=== PATIENT | female | born 1980 | race Caucasian/White ===

== ENCOUNTER 2019-06-15 17:04 | Emergency (ER) | payer OTHER ==
[~2019-06-15] VITALS: Ht 165.1 cm; Wt 113.4 kg
--- NOTE | 2019-06-15 17:13 | NUR ---
Patient to ER bed 8 to gown for evaluation. Side rails up. Report given to Mandi PARRA.
[2019-06-15 17:35] VITALS: BP_SYST 161
--- NOTE | 2019-06-15 17:58 | NUR ---
pt arrives after being exposed from gastric from gastric contents from a g-tube. Pt pt was splashed in her eyes. No other c/o at the moment
--- NOTE | 2019-06-15 18:00 | NUR ---
TARIQ Zimmerman at bedside examining patient.
--- NOTE | 2019-06-15 18:20 | NUR ---
pt lavaged her eyes for 10 min
--- NOTE | 2019-06-15 18:40 | NUR ---
pt getting labs drawn at the bedside
--- NOTE | 2019-06-15 19:05 | NUR ---
Patient given written and verbal discharge instructions and verbalizes understanding. ER MD discussed with patient the results and treatment provided. Patient in stable condition. ID arm band removed. Patient educated on pain management and to follow up with PMD. Pain Scale 0/10. Opportunity for questions provided and answered. Medication side effect fact sheet provided.
[2019-06-15 19:28] VITALS: BP_SYST 161
== END 2019-06-15 19:05 | disposition home or self-care (01) ==
LOC: SED 17:04
DX: Z77.21 Contact with and (suspected) exposure to potentially hazardous body fluids (principal)
CPT/HCPCS: 36415; 86704; 86706; 86803; 87340; 99281

== ENCOUNTER 2019-06-18 07:31 | Emergency (ER) | payer OTHER ==
[~2019-06-18] VITALS: Ht 165.1 cm; Wt 111.1 kg
--- NOTE | 2019-06-18 07:42 | NUR ---
Patient to ER bed 8 to gown for evaluation. Side rails up.
[2019-06-18 07:48] VITALS: BP_SYST 224
--- NOTE | 2019-06-18 07:50 | NUR ---
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 PT seen in [facility] ER Tuesday. Patient staes today she has right eye discharge and redness.
--- NOTE | 2019-06-18 07:55 | NUR ---
ER Dr. Sánchez at bedside examining patient.
[2019-06-18] MEDS ORDERED: PROPARACAINE (OPTHANINE 0.5%) 15 ML DROPS OP ONE (08:00)
[2019-06-18] MEDS ORDERED: FLUORESCEIN SODIUM 1 MG OPHTHALMIC STRIP OP ONE (08:00)
--- NOTE | 2019-06-18 08:50 | NUR ---
BP re-check 184/114, made Dr. Sánchez aware.
[2019-06-18] MEDS ORDERED: cloNIDine HCL 0.1 MG TABLET PO ONE (09:00)
[2019-06-18 09:17] LABS: BASOPHILS % (AUTO) 0.5 % (0.0-2.0); EOSINOPHILS # (AUTO) 0.2 K/uL (0.0-0.4); EOSINOPHILS % (AUTO) 4.4 % (0.0-4.0); HEMATOCRIT 38.3 % (36-48); HEMOGLOBIN 12.7 g/dL (12.0-16.0); LYMPHOCYTES # (AUTO) 1.7 K/uL (1.0-5.5); LYMPHOCYTES % (AUTO) 31.1 % (20.5-51.5); MEAN CORPUSCULAR HEMOGLOBIN 29 pg (27-31); MEAN CORPUSCULAR HGB CONC 33 % (32-36); MEAN CORPUSCULAR VOLUME 86 fL (79.0-98.0); MONOCYTES # (AUTO) 0.4 K/uL (0.0-1.0); MONOCYTES % (AUTO) 6.8 % (1.7-9.3); NEUTROPHILS # (AUTO) 3.2 K/uL (1.8-7.7); NEUTROPHILS % (AUTO) 57.2 % (40.0-70.0); PLATELET COUNT (AUTO) 318 K/uL (130-430); RED BLOOD CELL COUNT(AUTO) 4.47 MIL/uL (4.2-6.2); RED CELL DISTRIBUTION WIDTH 15.3 % (9.0-15.0); WHITE BLOOD COUNT (AUTO) 5.6 K/uL (4.8-10.8)
--- NOTE | 2019-06-18 09:21 | NUR ---
ECG done at bedside as ordered by Dr. Sánchez. Patient tolerated the procedure well. Report given to
--- NOTE | 2019-06-18 09:23 | NUR ---
X-ray done at bedside as ordered by Dr. Sánchez. Patient tolerated the procedure well.
[2019-06-18 09:30] LABS: CALCIUM 8.3 mg/dL (8.4-11.0); CREATININE 0.56 mg/dL (0.55-1.30); POTASSIUM 3.9 mmol/L (3.5-5.1)
[2019-06-18 09:31] LABS: PROTHROMBIN TIME 9.9 SECS (9.5-12.5)
[2019-06-18 09:36] LABS: ALBUMIN 3.4 g/dL (3.4-4.8); TOTAL BILIRUBIN 0.4 mg/dL (0.0-1.0)
--- NOTE | 2019-06-18 09:55 | NUR ---
VS re-check 134/80, made Dr. lovett aware
[2019-06-18 10:47] VITALS: BP_SYST 134
--- NOTE | 2019-06-18 10:47 | NUR ---
Patient given written and verbal discharge instructions and verbalizes understanding. ER MD discussed with patient the results and treatment provided. Patient in stable condition. ID arm band removed. Rx of clonidine & Oflaxacin given. Patient educated on pain management and to follow up with PMD. Pain Scale 0/10. Opportunity for questions provided and answered. Medication side effect fact sheet provided.
== END 2019-06-18 10:47 | disposition home or self-care (01) ==
LOC: SED 07:31
DX: H10.212 Acute toxic conjunctivitis, left eye (principal)
CPT/HCPCS: 36415; 71045; 80053; 81002; 81025; 82550-TC; 83880; 84484; 84703; 85025; 85379; 85610-TC; 85730-TC; 93005; 99285

== ENCOUNTER 2019-09-30 08:07 | Outpatient (CLI) | payer OTHER ==
[2019-09-30 09:41] LABS: FREE T4 (FREE THYROXINE) 0.9 ng/dL (0.6-1.6); THYROID STIMULATING HORMONE 2.31 uIu/mL (0.34-4.82)
[2019-10-01 12:24] LABS: TRIIODOTHYRONINE, FREE 3.8 pg/mL (2.0-4.4)
[2019-10-02 13:39] LABS: HEMOGLOBIN A1C 5.7 % (4.8-5.6)
== END 2019-09-30 21:05 | disposition home or self-care (01) ==
LOC: SLB 08:07
PROVIDERS: ATTEND Family Medicine
DX: E28.2 Polycystic ovarian syndrome (principal); R53.83 Other fatigue
CPT/HCPCS: 36415; 80061; 83036; 84439; 84443-TC; 84480; 84481

== ENCOUNTER 2019-11-22 09:32 | Outpatient (CLI) | payer OTHER | END 2019-11-22 20:56 | disposition home or self-care (01) | LOC: SCT 09:32 | PROVIDERS: ATTEND Family Medicine | DX: M48.07 Spinal stenosis, lumbosacral region (principal); M54.31 Sciatica, right side | CPT/HCPCS: 72131 ==

== ENCOUNTER 2020-02-14 10:27 | Outpatient (CLI) | payer OTHER | END 2020-02-14 19:50 | disposition home or self-care (01) | LOC: SRD 10:27 | PROVIDERS: ATTEND Specialist | DX: Z12.31 Encounter for screening mammogram for malignant neoplasm of breast (principal); J01.11 Acute recurrent frontal sinusitis | CPT/HCPCS: 70486-TC; 77067 ==

== ENCOUNTER 2020-03-20 10:21 | Outpatient (CLI) | payer OTHER | END 2020-03-20 20:49 | disposition home or self-care (01) | LOC: SMI 10:21 → SRD 20:49 | PROVIDERS: ATTEND Family Medicine | DX: M47.812 Spondylosis without myelopathy or radiculopathy, cervical region (principal); R59.0 Localized enlarged lymph nodes; R92.2 Inconclusive mammogram; M54.31 Sciatica, right side; R20.0 Anesthesia of skin | CPT/HCPCS: 72050-TC; 76641 ==

== ENCOUNTER → 2020-04-09 | Outpatient (CLI) | payer OTHER | END | disposition home or self-care (01) | LOC: SCT 13:55 | PROVIDERS: ATTEND Family Medicine | DX: R59.0 Localized enlarged lymph nodes (principal) | CPT/HCPCS: 71250-TC; 76376 ==

== ENCOUNTER 2020-08-15 16:34 | Outpatient (CLI) | payer OTHER | END 2020-08-15 21:27 | disposition home or self-care (01) | LOC: SRD 16:34 | PROVIDERS: ATTEND Family Medicine | DX: M25.762 Osteophyte, left knee (principal) | CPT/HCPCS: 73564 ==

== ENCOUNTER 2020-09-24 09:55 | Outpatient (CLI) | payer OTHER | END 2020-09-24 20:29 | disposition home or self-care (01) | LOC: SMI 09:55 | PROVIDERS: ATTEND Family Medicine | DX: M25.862 Other specified joint disorders, left knee (principal); M25.562 Pain in left knee | CPT/HCPCS: 73721 ==

== ENCOUNTER 2021-02-24 12:48 | Outpatient (CLI) | payer OTHER ==
[2021-02-25 05:08] LABS: HEPATITIS A AB, IgM Negative (Negative); HEPATITIS B CORE AB, IgM Negative (Negative); HEPATITIS B SURFACE AG Negative (Negative)
[2021-02-26 19:06] LABS: FTA-Ab (T PALLIDUM) Non Reactive (Non Reactive)
== END 2021-02-24 19:14 | disposition home or self-care (01) ==
LOC: SLB 12:48
PROVIDERS: ATTEND Specialist
DX: Z11.3 Encounter for screening for infections with a predominantly sexual mode of transmission (principal)
CPT/HCPCS: 36415; 80074; 86592; 86780